=== PATIENT | female | born 1995 | race Caucasian/White ===

== ENCOUNTER 2017-03-04 05:43 | Emergency (ER) | payer OTHER ==
[~2017-03-04] VITALS: Ht 162.6 cm; Wt 94.3 kg
[~2017-03-04 05:43] MED LIST: LEXAPRO10 MG PO
[2017-03-04 06:38] VITALS: BP 131/59
== END 2017-03-04 06:38 | disposition home or self-care (01) ==
LOC: ED 05:43
DX: J02.9 Acute pharyngitis, unspecified (principal)

== ENCOUNTER 2017-03-05 10:54 | Emergency (ER) | payer OTHER ==
[~2017-03-05] VITALS: Ht 162.6 cm; Wt 92.1 kg
[2017-03-05 13:06] LABS: microscopic required? YES; urine erythrocyte NEGATIVE (NEGATIVE)
[2017-03-05 15:17] VITALS: BP 123/76
== END 2017-03-05 16:53 | disposition home or self-care (01) ==
LOC: ED 10:54
DX: J02.9 Acute pharyngitis, unspecified (principal); R11.10 Vomiting, unspecified
CPT/HCPCS: J0696; J1100; J1885; J2405; J3010; J7030

== ENCOUNTER 2019-07-29 06:45 | Emergency (ER) | payer SELFPAY ==
[~2019-07-29] VITALS: Ht 162.6 cm; Wt 92.2 kg
[2019-07-29 06:54] VITALS: Ht 162.6 cm; Wt 92.2 kg
[2019-07-29 07:15] VITALS: BP 111/67
== END 2019-07-29 07:15 | disposition home or self-care (01) ==
LOC: ED 06:45
DX: Z02.79 Encounter for issue of other medical certificate (principal)

== ENCOUNTER 2019-10-10 03:01 | Emergency (ER) | payer SELFPAY ==
[~2019-10-10] VITALS: Ht 162.6 cm; Wt 92.1 kg
[2019-10-10 03:06] VITALS: Ht 162.6 cm; Wt 92.1 kg
[2019-10-10 04:20] VITALS: BP 143/87
== END 2019-10-10 04:20 | disposition home or self-care (01) ==
LOC: ED 03:01
DX: J02.0 Streptococcal pharyngitis (principal); H66.93 Otitis media, unspecified, bilateral; F32.9 Major depressive disorder, single episode, unspecified